=== PATIENT | female | born 1950 | race Caucasian/White ===

== ENCOUNTER 2025-09-05 09:33 | Outpatient (CLI) | payer MEDICARE, SELFPAY ==
--- NOTE | ~2025-09-05 | MR_ITS ---
EXAMINATION: MR cervical spine wo con DATE: 09/05/2025 10:13 INDICATION: Neck pain. TECHNIQUE: Magnetic resonance imaging (MRI) of the cervical spine was performed without intravenous contrast. COMPARISON: Cervical spine radiographs 09/05/2025 FINDINGS: There is 7 degrees dextrocurvature of thoracolumbar spine. There is kyphosis of cervical spine. There is 2 mm retrolisthesis of C4 on C5, C5 on C6, and C6 on C7. Vertebral body heights are normal. There is severely decreased disc height from C3-C4 through C7-T1 with interbody fusion at C3-C4 and C5-C6. The spinal cord signal intensity is normal. The following disc levels are specifically discussed: C2-C3: The disc does not extend beyond the endplate margin. There is no uncovertebral joint osteoarthritis. There is moderate right and severe left facet joint osteoarthritis. There is mild left neural foraminal stenosis. There is no central canal stenosis. C3-C4: There is severe bilateral uncovertebral joint hypertrophy. There is ankylosis of the facet joints with moderate hypertrophy. There is moderate bilateral neural foraminal stenosis. There is mild central canal stenosis. C4-C5: The disc is bulging. There is severe bilateral uncovertebral joint osteoarthritis. There is severe right and moderate left facet joint osteoarthritis. There is moderate bilateral neural foraminal stenosis. There is mild central canal stenosis. C5-C6: The disc is bulging. There is severe bilateral uncovertebral joint osteoarthritis. There is mild bilateral facet joint osteoarthritis. There is moderate bilateral neural foraminal stenosis. There is mild central canal stenosis. C6-C7: The disc is bulging. There is severe bilateral uncovertebral joint osteoarthritis. There is moderate bilateral facet joint osteoarthritis. There is moderate right and severe left neural foraminal stenosis. There is mild central canal stenosis. C7-T1: The disc is bulging. There is severe right and moderate left uncovertebral joint osteoarthritis. There is severe bilateral facet joint osteoarthritis. There is mild lateral neural foraminal stenosis. There is mild central canal stenosis. IMPRESSION: 1. Severe cervical spondylosis. Reviewed, dictated and finalized at location E.
--- NOTE | ~2025-09-05 | XR_ITS ---
XR cervical spine min 6V Indication: M54.2 - Cervicalgia Comparison: None Findings: No fracture, no subluxation flexion and extension. Severe loss of disc height at C3-4 C4-5 C5-6 and C6-7. There is severe narrowing of the foramina bilaterally throughout the cervical spine. Soft tissues unremarkable Impression: No acute abnormality. Reviewed, dictated and finalized at location P. Impression: No acute abnormality.
== END 2025-09-05 09:34 | disposition home or self-care (01) ==
LOC: MICIMG 09:35
PROVIDERS: PCP Nurse Practitioner Adult Health; Visit Provider Nurse Practitioner Adult Health
DX: M54.2 Cervicalgia (principal); M48.02 Spinal stenosis, cervical region; M47.812 Spondylosis without myelopathy or radiculopathy, cervical region; R29.890 Loss of height
CPT/HCPCS: 72052; 72141

== ENCOUNTER 2025-09-16 07:07 | Day surgery (SDC) | payer MEDICARE, SELFPAY ==
--- OUTSIDE RECORDS SUMMARY | 2025-06-26 03:00 | XMS_ITS ---
Author Organization [facility] Address [address] [place] [address] Care Team Providers Care Smoke Inspector Name Role Phone NO, PCP Primary Care Provider UnavailConnie Llamas Unavailable [phone] Ritchie Mitul Unavailable [phone] REASON FOR VISIT Right Upper Quadrant Trigger Point Injection Medications Medication SIG (Take, Route, Frequency, Duration) Notes Start Date End Date Status Escitalopram Oxalate 10 MG 1 tablet Oral ly Once a day for 90 days Active Venlafaxine HCl ER 75 MG 1 capsule with food Orally Once a day for 90 days Active Dutasteride 0.5 MG 1 capsule Orally Onc e a day for 100 days Active Diclofenac Sodium 75 MG 1 tablet as need ed Orally daily for 100 days Active tiZANidine HCl 4 MG 1-2 tablets at bedti me as needed Orally at bedtime as needed for 30 days 06/24/2025 Active ALPRAZolam 0.25 MG 1 tablet Orally Twic e a day Active Levothyroxine Sodium 112 MCG 1 tablet in the morning on an empty stomach Orally Once a day for 100 days Active Hydroxychloroquine Sulfate 2 00 MG as directed Orally daily for 100 days Active Tylenol 8 Hour Arthritis Donavan n 650 MG 2 tablets as needed Orally every 8 hrs Active Encounters Encounter Location Date Provider Diagnosis [facility] [address] [place] [address] 06/26/2025 Mitul Dugan Myalgia, other site M79.18 Assessments Encounter Date Diagnosis (ICD Code) Assessment Notes Treatment Notes Treatment Clinical Notes Section Notes 06/26/2025 Myalgia, other site (ICD-10 - M79.18) Plan Of Treatment No Information Progress Notes * Jazzmine LANDIN:[birth year] (75 yo F)Acc No.[id number]:06/26/2025 Injection Patient: Gail WALTER Provider: JOSEFINA Hernandez :1950 A ge:74 Y S ex:Female Date:06/26/2025 Address:[address] [place] [address] Pcp:PCP NO Subjective: * Chief Complaints: * 1 . Right Upper Quadrant Trigger Point Injection. * HPI: C omplaints: PROCEDURE NOTE Patient presents to the practice today with pain reported at a level 7 located in the right upper quadrant. We will reevaluate the pain level at the post procedural follow up. PROCEDURE: 1. Trigger point injection of the Trapezius, Levator Scapulae, Splenius Capitis muscles and the greater occipital nerve DIAGNOSIS: 1. Myalgia (M79.18) MEDICATION USED: 1. Marcaine 0.5% 4 cc 2. DepoMedrol 80mg/cc 1 cc SUBJECTIVE: This is a 74 year old patient that presents today for a right upper quadrant muscle injection targeting the above muscles. PROCEDURE DESCRIPTION: After explaining the risks and benefits and answering the patient's questions informed consent was obtained. The patient was placed in the appropriate position for the procedure. Palpation was used to identify painful myofascial trigger points then the skin over the area to be injected was cleaned with alcohol prior to each injection. Using a 25 gauge needle, the muscles listed above were injected. The medication listed above was injected evenly between all muscles injected after first aspirating for blood. The patient tolerated the procedure well and was given post procedure instructions after being observed and found to have no adverse events. Patient was instructed to follow up for a post procedure visit in 1-2 weeks or sooner if they have any questions or problems. COMPLICATIONS: NONE PLAN: 1. Follow post procedure instructions and call the office with any questions or concerns. 2. Continue on present medications. 3. Follow up in office appointment within several weeks to check on response to the injection and to make any necessary medication adjustments and determine subsequent treatment steps. physician office assistant present during procedure: Truong Davis. * Medical History: * Medications: T aking Tylenol 8 Hour Arthritis Pain 650 MG Tablet Extended Release 2 tablets as needed Orally every 8 hrs , Taking ALPRAZolam 0.25 MG Tablet 1 tablet Orally Twice a day , Taking Levothyroxine Sodium 112 MCG Tablet 1 tablet in the morning on an empty stomach Orally Once a day , Taking Hydroxychloroquine Sulfate 200 MG Tablet as directed Orally daily , Taking Dutasteride 0.5 MG Capsule 1 capsule Orally Once a day , Taking Diclofenac Sodium 75 MG Tablet Delayed Release 1 tablet as needed Orally daily , Taking Escitalopram Oxalate 10 MG Tablet 1 tablet Orally Once a day , Taking Venlafaxine HCl ER 75 MG Capsule Extended Release 24 Hour 1 capsule with food Orally Once a day , Taking tiZANidine HCl 4 MG Tablet 1-2 tablets at bedtime as needed Orally at bedtime as needed Objective: * Vitals: Assessment: * Assessment: 1. lesa Caal site - M79.18 (Primary) Plan: * Treatment: * Procedure Codes: 2 0553 TRIGGER POINT INJECTION 3 OR MORE MUSCLES, J1010 Injection, methylprednisolone acetate, 1 mg, Units: 80.00 , Modifiers: JZ * * Electronic signature of JOSEFINA Barron on 09/16/2025 at 07:10 AM COLLEGE RECRUITER Sign off status: Pending * Provider: JOSEFINA Hernandez Date: 0 06/26/2025 Generated for Luis rizo/Yanick/El on: 1 11/16/2024 07:10 AM COLLEGE RECRUITER History and Physical Notes * HPI (History of Present Illness) Category Sub-Category Detail Notes Category Not es Complaints PROCEDURE NOTE Patient presents to the practice today with pain reported at a level 7 located in the right upper quadrant. We will reevaluate the pain level at the post procedural follow up. PROCEDURE: 1. Trigger point injection of the Trapezius, Levator Scapulae, Splenius Capitis muscles and the greater occipital nerve DIAGNOSIS: 1. Myalgia (M79.18) MEDICATION USED: 1. Marcaine 0.5% 4 cc 2. DepoMedrol 80mg/cc 1 cc SUBJECTIVE: This is a 74 year old patient that presents today for a right upper quadrant muscle injection targeting the above muscles. PROCEDURE DESCRIPTION: After explaining the risks and benefits and answering the patient's questions informed consent was obtained. The patient was placed in the appropriate position for the procedure. Palpation was used to identify painful myofascial trigger points then the skin over the area to be injected was cleaned with alcohol prior to each injection. Using a 25 gauge needle, the muscles listed above were injected. The medication listed above was injected evenly between all muscles injected after first aspirating for blood. The patient tolerated the procedure well and was given post procedure instructions after being observed and found to have no adverse events. Patient was instructed to follow up for a post procedure visit in 1-2 weeks or sooner if they have any questions or problems. COMPLICATIONS: NONE PLAN: 1. Follow post procedure instructions and call the office with any questions or concerns. 2. Continue on present medications. 3. Follow up in office appointment within several weeks to check on response to the injection and to make any necessary medication adjustments and determine subsequent treatment steps. physician office assistant present during procedure: Truong Davis
--- OUTSIDE RECORDS SUMMARY | 2025-07-15 07:45 | XMS_ITS ---
Author Organization [facility] Address [address] [place] [address] Care Team Providers Care Consulting Services Project Manager Name Role Phone NO, PCP Primary Care Provider Connie Brady Unavailable [phone] Mitul Dugan Unavailable [phone] REASON FOR VISIT 2 Wks Encounters Encounter Location Date Provider Diagnosis [facility] [address] 07/15/2025 Mitul Dugan Plan Of Treatment No Information Progress Notes * aGil GONZALEZDOB:[birth year] (75 yo F)Acc No.[id number]:07/15/2025 Post Procedure Follow Up Patient: Gail WALTER Provider: JOSEFINA Hernandez :1950 A ge:75 Y S ex:Female Date:07/15/2025 Address:[address] [place], [place] [id number] Pcp:PCP NO Subjective: * Chief Complaints: * 1 . 2 Wks. * Medical History: Objective: * Vitals: Assessment: Plan: * Treatment: * * Electronic signature of JOSEFINA Barron on 09/16/2025 at 07:10 AM DENTAL CHAIRSIDE ASSISTANT Sign off status: Pending * Provider: JOSEFINA Hernandez Date: 0 07/15/2025 Generated for Luis rizo/Yanick/eTransmitting on: 1 11/16/2024 07:10 AM DENTAL CHAIRSIDE ASSISTANT
--- OUTSIDE RECORDS SUMMARY | 2025-07-22 05:45 | XMS_ITS ---
Author Organization [facility] Address [address] [place] [address] Care Team Providers Care Back Office Medical Assistant Name Role Phone NO, PCP Primary Care Provider Connie Brady Unavailable [phone] Allergies No Known Allergies REASON FOR VISIT Cervical Five Cervical Six Epidural Steroid Injection Medications Medication SIG (Take, Route, Frequency, Duration) Notes Start Date End Date Status Escitalopram Oxalate 10 MG 1 tablet Oral ly Once a day for 90 days Active Diclofenac Sodium 75 MG 1 tablet as need ed Orally daily for 100 days Active tiZANidine HCl 4 MG 1-2 tablets at bedti me as needed Orally at bedtime as needed for 30 days 06/24/2025 Active Venlafaxine HCl ER 75 MG 1 capsule with food Orally Once a day for 90 days Active CeleBREX 200 MG 1 capsule Orally Onc e a day PRN for 30 days 07/15/2025 Active Tylenol 8 Hour Arthritis Donavan n 650 MG 2 tablets as needed Orally every 8 hrs Active Levothyroxine Sodium 112 MCG 1 tablet in the morning on an empty stomach Orally Once a day for 100 days Active ALPRAZolam 0.25 MG 1 tablet Orally Twic e a day Active Dutasteride 0.5 MG 1 capsule Orally Onc e a day for 100 days Active Hydroxychloroquine Sulfate 2 00 MG as directed Orally daily for 100 days Active Encounters Encounter Location Date Provider Diagnosis [facility] [address] [place] [address] 07/22/2025 Connie Hicks Cervical radiculopat hy M54.12 Assessments Encounter Date Diagnosis (ICD Code) Assessment Notes Treatment Notes Treatment Clinical Notes Section Notes 07/22/2025 Cervical radiculopathy (ICD-10 - M54.12) Plan Of Treatment No Information Progress Notes * Gail LANDINDOB:[birth year] (75 yo F)Acc No.[id number]:07/22/2025 Injection Patient: Gail WALTER Provider: Katya Hicks MD :1950 A ge:75 Y S ex:Female Date:07/22/2025 Address:[address] [place] [address] Pcp:PCP NO Subjective: * Chief Complaints: * 1 . Cervical Five Cervical Six Epidural Steroid Injection. * HPI: C omplaints: PROCEDURE: 1. Epidural steroid injection at level; posterior paramedian approach 2. Epidurography 3. Fluoroscopic imaging for needle placement 4. Radiographic interpretation: Cervical Spine DIAGNOSIS: 1. Cervical Radiculopathy MEDICATION USED: 1. Skin infiltration: 5cc Lidocaine 1% 2. Contrast agent: 3 cc Omnipaque-300 3. 3 cc 0.9% Normal Saline 4. Steroid: 10 mg Dexamethasone SUBJECTIVE: This patient presents today for a epidural steroid injection. PROCEDURE DESCRIPTION: Informed consent for the procedure was obtained and the patient signed the procedure consent form. The patient was given sufficient time to ask questions related to the procedure and to discuss expectations and the overall plan of treatment. The patient was brought into the procedure room and placed in the appropriate position for the procedure as noted above. Betadine (or alcohol if the patient carried an iodine allergy history) was used to prepare the skin over the appropriate location for the injection and sterile drapes were applied. Strict aseptic technique was followed during the procedure. The skin was then infiltrated overlying the area to be injected with local anesthetic as noted above. A 22-ga needle was used for the procedure. This was advanced to the epidural space using a loss of resistance technique walking the needle point off the lamina to enter the epidural space to the appropriate side of the epidural space to ensure coverage of the nerve roots on that side. The epidural space was entered without difficulty; and an epidurogram, if done, was performed using contrast agent as noted above and is reported below. Following the epidurogram, the patient received the steroid and local anesthetic diluted with preservative-free saline as noted above after careful aspiration for CSF and blood. The patient had no ill effects from the procedure.The patient was taken to and watched in the recovery area for an appropriate period of time and then released to home in the care of a responsible adult once discharge criteria were met and discharge planning/subsequent appointments were made. FLUOROSCOPIC IMAGING FINDINGS: An initial survey of the spine in the area noted was performed with the C-arm fluoroscope. The following were noted: 1. Minimal degenerative changes were notated in the cervical spine EPIDUROGRAM FINDINGS: Once the spinal needle was properly placed within the epidural space and after careful aspiration to check for CSF and blood, the contrast agent noted above was injected to observe the dye flow pattern in the area injected. Contrast was seen to flow freely out the nerve root sleeves. There was no evidence of cut off of a nerve root sleeve or impairment of dye flow into any area. COMPLICATIONS: NONE PLAN: 1. Follow post procedure instructions and complete post procedure diary. 2. Continue on present medications. 3. Follow-up appointment within several weeks to check on response to the injection or to repeat the injection and to make any necessary medication adjustment and determine subsequent treatment steps. * Medical History: H ypothyroidism. * Medications: T aking Tylenol 8 Hour [...] as needed Orally at bedtime as needed , Taking CeleBREX 200 MG Capsule 1 capsule Orally Once a day PRN * Allergies: N .K.D.A. Objective: * Vitals: Assessment: * Assessment: 1. C ervical radiculopathy - M54.12 (Primary) Plan: * Treatment: * Procedures: a dvanced disc space narr c56 c67 with marked spondolysis c56 c67 end plate changes c5 and c6. * Procedure Codes: 6 2321 NJX INTERLAMINAR CRV/THRC, 25006 X-RAY EXAM OF NECK SPINE, J1010 Injection, methylprednisolone acetate, 1 mg, Units: 80.00 , Modifiers: JZ * * Electronic signature of Connie Hicks MD on 09/16/2025 at 07:10 AM INDUSTRIAL GAS FITTER HELPER Sign off status: Pending * Provider: Katya Hicks MD Date: 0 07/22/2025 Generated for Cindyi darrius/Yanick/eTransmitting on: 1 11/16/2024 07:10 AM INDUSTRIAL GAS FITTER HELPER History and Physical Notes * HPI (History of Present Illness) Category Sub-Category Detail Notes Category Not es Complaints PROCEDURE: 1. Epidural steroid injection at level; posterior paramedian approach 2. Epidurography 3. Fluoroscopic imaging for needle placement 4. Radiographic interpretation: Cervical Spine DIAGNOSIS: 1. Cervical Radiculopathy MEDICATION USED: 1. Skin infiltration: 5cc Lidocaine 1% 2. Contrast agent: 3 cc Omnipaque-300 3. 3 cc 0.9% Normal Saline 4. Steroid: 10 mg Dexamethasone SUBJECTIVE: This patient presents today for a epidural steroid injection. PROCEDURE DESCRIPTION: Informed consent for the procedure was obtained and the patient signed the procedure consent form. The patient was given sufficient time to ask questions related to the procedure and to discuss expectations and the overall plan of treatment. The patient was brought into the procedure room and placed in the appropriate position for the procedure as noted above. Betadine (or alcohol if the patient carried an iodine allergy history) was used to prepare the skin over the appropriate location for the injection and sterile drapes were applied. Strict aseptic technique was followed during the procedure. The skin was then infiltrated overlying the area to be injected with local anesthetic as noted above. A 22-ga needle was used for the procedure. This was advanced to the epidural space using a loss of resistance technique walking the needle point off the lamina to enter the epidural space to the appropriate side of the epidural space to ensure coverage of the nerve roots on that side. The epidural space was entered without difficulty; and an epidurogram, if done, was performed using contrast agent as noted above and is reported below. Following the epidurogram, the patient received the steroid and local anesthetic diluted with preservative-free saline as noted above after careful aspiration for CSF and blood. The patient had no ill effects from the procedure.The patient was taken to and watched in the recovery area for an appropriate period of time and then released to home in the care of a responsible adult once discharge criteria were met and discharge planning/subsequent appointments were made. FLUOROSCOPIC IMAGING FINDINGS: An initial survey of the spine in the area noted was performed with the C-arm fluoroscope. The following were noted: 1. Minimal degenerative changes were notated in the cervical spine EPIDUROGRAM FINDINGS: Once the spinal needle was properly placed within the epidural space and after careful aspiration to check for CSF and blood, the contrast agent noted above was injected to observe the dye flow pattern in the area injected. Contrast was seen to flow freely out the nerve root sleeves. There was no evidence of cut off of a nerve root sleeve or impairment of dye flow into any area. COMPLICATIONS: NONE PLAN: 1. Follow post procedure instructions and complete post procedure diary. 2. Continue on present medications. 3. Follow-up appointment within several weeks to check on response to the injection or to repeat the injection and to make any necessary medication adjustment and determine subsequent treatment steps.
[2025-09-12 09:30] VITALS: BMI 34.2
--- NOTE | ~2025-09-16 | XR_ITS ---
EXAMINATION: XR fluoroscopy no charge DATE: 09/16/2025 08:30 INDICATION: Bilateral C2-C3, C3 and C4 medial branch blocks TECHNIQUE: 133 fluoroscopic images of the cervical spine were obtained during pain management procedure performed by Dr. Lira. Radiologist was not present for the imaging or procedure. The amount of fluoroscopy time used during this procedure was 0.8 minutes. The cumulative radiation dose was 3.56 mGy. COMPARISON: None. FINDINGS/IMPRESSION: Fluoroscopic images demonstrate needles advanced with tips projecting near the junction of the lateral margin of the lateral mass of C2, C3 and C4 on both the left and right. See procedure note for further detail. Reviewed, dictated and finalized at location A. IDE SALES ACCOUNT EXECUTIVE
--- NOTE | 2025-09-16 05:51 | WPDHPUPDATE1 ---
History and Physical Update Update Date/Time: 09/16/25 05:51 History and Physical has been reviewed, including an updated exam of the patient. There are NO changes in the patient's condition. Risks, benefits, and alternatives have been discussed and questions answered. Patient agrees to proceed with procedure.
--- NOTE | 2025-09-16 05:52 | P.OP_ITS ---
Procedure Note - Detailed Date of Procedure 09/16/25 Pre-op Diagnosis Cervical Spondylosis w/o Myelopathy or Radiculop. Post-op Diagnosis Same Procedure Performed Diagnostic Bilateral Cervical Medial Branch Blocks at C2-3, C3, C4 Blocking the Bilateral C2-3, C3-4 Facet Joints Under Fluoroscopic Guidance and with Contrast Control (4 levels blocked). Surgeon Remberto Lira MD Ordering Machine Operator None. Anesthesia Local Description of Procedure INFORMED CONSENT: Risks, benefits and alternatives to the procedure were discussed in detail with the patient who expressed explicit understanding and consent to proceed. Patient was informed verbally and in written form regarding the risks associated with the procedure including the low risk of serious infection, bleeding/bruising, allergic reaction, nerve or organ injury, paralysis, procedural site pain or discomfort, worsening pain and/or mobility, failure to treat and/or disfigurement. The patient expressed explicit understanding and consent to proceed. All materials required for the procedure were available prior to procedure start. Site and side was marked prior to procedure and confirmed in the presence of the patient. PROCEDURE IN DETAIL: The patient was brought to the procedural suite and placed in the left lateral decubitus position with head stabilized. Patient was made comfortable with use of pillows under the head and between the knees and ankles. Skin overlying the injection site on the affected side was prepared broadly with tinted 3ml ChloraPrep applicator and draped in a sterile manner. Aseptic technique was used throughout. The endplates of the vertebral bodies at the site(s) of interest were aligned in the lateral fluoroscopic view relative to the patient. Image was optimized for visualization of the pars interarticularis at each target site. Local anesthesia was established by infiltration with approximately 5 mL of 1% lidocaine via a 1-1/2 inch 27- gauge needle. A 25-gauge 3.5 inch Quincke spinal needle was advanced until the needle tip contacted the periosteum of the pars interarticularis at the target site, the right C2-3 medial branch. AP view was utilized to confirm the appropriate placement of the needle tip just lateral to the periosteum at the center point of the pars interarticularis. In the lateral view, 0.25 mL of Omnipaque 300 contrast medium was injected after negative aspiration for CSF, blood or other bodily fluid, showing appropriate extra-articular spread of contrast without evidence of intravascular, foraminal or intrathecal placement. A 0.25 mL solution of 0.5% PF bupivacaine was injected after negative repeat aspiration. Appropriate spread of the injectate was confirmed with washout of previously injected contrast. No parasthesias were elicited. Needle was removed completely intact without difficulty. The same procedure was repeated for all additional intended levels/structures treated on the ipsilateral side, the right C3, C4 medial branches with identical methodology modified to compensate for different location, with similar results and no evidence of complication. The same procedure was then repeated for all additional intended levels/structures treated on the contralateral side, the left C2-3, C3, C4 medial branches, with identical methodology and positioning modified to compensate for the contralateral location, with similar results and no evidence of complication. Images were saved and documented in the patient chart. Patient's skin was cleaned and sterile bandage applied. The patient tolerated the procedure well. The patient was transported to the recovery area in stable condition where they were observed for an appropriate amount of time prior to discharge, without evidence of complication. Patient was instructed on the appropriate completion of a pain diary over the next 12-24 hours. The patient was instructed to avoid excessive activity for the next 48 hours, including climbing and frequent use of stairs. Showers only for 48 hours. They were instructed not to drive or operate heavy machinery for 24 hours. They are to monitor for severe headaches, fevers, chills, night sweats, erythema/swelling at the site or any other signs of infection, bleeding/bruising, bowel or bladder changes as well as new pain, weakness or numbness in the upper or lower extremity. Should they notice these changes, they are instructed to call our office immediately or report directly to the nearest Emergency Department if no answer or if after posted office hours. COMPLICATIONS: None. COMMENTS: None. CONTRAST WASTED: 28.5mL Omnipaque 300. Complications No immediate complications Condition Stable Disposition Same day [facility] Billing Surgery - Charge Forward: Surgery Billing
--- OUTSIDE RECORDS SUMMARY | 2025-09-16 07:10 | XMS_ITS | Patient Health Record ---
Author Organization [facility] Address [address] [place] [address] Care Team Providers Care Forging Press Operator Name Role Phone NO, PCP Primary Care Provider Connie Brady Unavailable [phone] Mitul Dugan Unavailable [phone] Allergies No Known Allergies Reason For Referral Reason To: Dr. Kristie Hanley i Pt with symptoms of headaches Referral Organization [facility] Referring Provider First Name Connie Referring Provider Last Name Kurt Referring Provider Speciality Pain Medic ine Referred Provider Specialty Neurology Referral Priority Routine Medications Medication SIG (Take, Route, Frequency, Duration) Notes Start Date End Date Status Venlafaxine HCl ER 75 MG 1 capsule with food Orally Once a day for 90 days Active Escitalopram Oxalate 10 MG 1 tablet Oral ly Once a day for 90 days Active CeleBREX 200 MG 1 capsule Orally Onc e a day PRN for 30 days 07/15/2025 Active tiZANidine HCl 4 MG 1-2 tablets at bedti me as needed Orally at bedtime as needed for 30 days 06/24/2025 Active Hydroxychloroquine Sulfate 2 00 MG as directed Orally daily for 100 days Active Levothyroxine Sodium 112 MCG 1 tablet in the morning on an empty stomach Orally Once a day for 100 days Active Diclofenac Sodium 75 MG 1 tablet as need ed Orally daily for 100 days Active Dutasteride 0.5 MG 1 capsule Orally Onc e a day for 100 days Active ALPRAZolam 0.25 MG 1 tablet Orally Twic e a day Active Tylenol 8 Hour Arthritis Donavan n 650 MG 2 tablets as needed Orally every 8 hrs Active Social History Tobacco Use: Social History Observation Description Date Details (start date - stop date) Former Smoker NA - NA Tobacco Control (Standard) Question Answer Notes Tobacco use: Former smoker How long has it been since you last smoked? Julianaa ter than 10 years AUDIT-C (Standard) Question Answer Notes Did you have a drink contain ing alcohol in the past year? Yes How often did you have a dri nk containing alcohol in the past year? Daily or almost daily (4 points) How many drinks did you have on a typical day when you were drinking in the past year? 3 or 4 drinks (1 point) How often did you have six o r more drinks on one occasion in the past year? Declined to specify (0 point) Points 5 Interpretation Positive Vital Signs Heart Rate 75 /min 06/24/2025 Blood pressure diastolic 74 mm Hg 06/24/2025 Height 64 in 06/24/2025 Blood pressure systolic 122 mm Hg 06/24/2025 Weight 192 lbs 06/24/2025 BMI 32.95 kg/m2 06/24/2025 Encounters Encounter Location Date Provider Diagnosis [facility] [place] [address] 06/24/2025 Mitul Dugan Myalgia of auxiliary muscles, head and neck M79.12 and Cervical spinal stenosis M48.02 [facility] [place] [address] 06/26/2025 Mitul Dugan Myalgia, other site M79.18 [facility]-[address] [place] [address] 07/15/2025 Mitul Dugan Cervical spinal stenosis M48.02 ; Cervical radiculopathy M54.12 and Headache, unspecified R51.9 [facility] [place] [address] 07/22/2025 Connie Hicks Cervical radiculopat hy M54.12 [facility] [place] [address] 08/05/2025 Mitul Dugan Cervical radiculopat hy M54.12 ; Cervical spinal stenosis M48.02 and Cervical spondylosis without myelopathy M47.812 Assessments Encounter Date Diagnosis (ICD Code) Assessment Notes Treatment Notes Treatment Clinical Notes Section Notes 06/24/2025 Myalgia of auxiliary muscles, head and neck (ICD-10 - M79.12) IMPRESSION: 1. Axial neck pain. 2. Cervical myofascial pain syndrome. 3. Cervical spondylosis. 4. Cervical stenosis. 06/24/2025 Cervical spinal stenosis (ICD-10 - M48.02) IMPRESSION: 1. Axial neck pain. 2. Cervical myofascial pain syndrome. 3. Cervical spondylosis. 4. Cervical stenosis. 06/26/2025 Myalgia, other site (ICD-10 - M79.18) 07/15/2025 Cervical spinal stenosis (ICD-10 - M48.02) Assessment is unchanged from 06/24/25 except as denoted below. 07/15/2025 Cervical radiculopathy (ICD-10 - M54.12) Assessment is unchanged from 06/24/25 except as denoted below. 07/22/2025 Cervical radiculopathy (ICD-10 - M54.12) 08/05/2025 Cervical radiculopathy (ICD-10 - M54.12) Assessment is unchanged from 07/15/25 except as denoted below. 08/05/2025 Cervical spinal stenosis (ICD-10 - M48.02) Assessment is unchanged from 07/15/25 except as denoted below. 07/15/2025 Headache, unspecified (ICD-10 - R51.9) Assessment is unchanged from 06/24/25 except as denoted below. 08/05/2025 Cervical spondylosis without myelopathy (ICD-10 - M47.812) Assessment is unchanged from 07/15/25 except as denoted below. 06/24/2025 Other PLAN: We discussed with the patient about right upper quadrant trigger point injections to target her muscle pain and tightness as well as her occipital neuralgia. We discussed procedure details, risks, benefits, alternatives and expected outcomes of the above procedures with the patient. The patient expressed understanding. All patient questions were answered to the patient's satisfaction. We will schedule the patient for right upper quadrant trigger point injections. We will prescribe Tizanidine (Zanaflex) 4 mg 1-2 tablets at night as needed to improve muscle pain and sleep quality overnight. Discussed potential medication risks and side effects of the above medication with the patient. The patient expressed understanding. The patient denies a history of kidney or liver disease. We discussed with the patient about a cervical epidural steroid injection to target her pain stemming from stenosis; however, the patient defers at this time as her latest cervical epidural steroid injection did not give her significant relief. We will consider this in the future if the trigger point injections do not give the patient significant relief. We discussed with the patient about a spinal cord stimulator implant to give her long-term pain relief of her neck pain; however, the patient defers this option at this time and states that she does not want to have any surgical procedures at this time. We will not add or change any other medications at this time as the patient is currently tolerating all medications with no significant side effects. We advised the patient to contact the clinic if they develop any new pain or worsening symptoms. IMPRESSION: 1. Axial neck pain. 2. Cervical myofascial pain syndrome. 3. Cervical spondylosis. 4. Cervical stenosis. 07/15/2025 Other Notes: Significant time was spent due to complex decision-making as a result of the patient's complicated pain issues. The plan is as follows: Patient will continue exercise therapy regimen. Due to pt's persistent headaches, will refer pt to Dr. Geronimo King, neurology, at [place] for further evaluation. Will schedule the patient for a C5/6 BLAYNE to target pain and radicular symptoms stemming from stenosis. Discussed procedure details, risks, benefits, alternatives and expected outcomes with the patient. The patient expresses understanding. All patient questions were answered to the patient's satisfaction. Will prescribe Celebrex for patient's acute pain and to reduce inflammation. Discussed medication risks/potential side effects with the patient. Advised the patient to not take any other NSAIDs while taking this medication. The patient expresses understanding. The patient denies history of kidney or liver disease. We advised the patient that all blood thinners must be discontinued 1 week prior to the cervical BLAYNE including NSAIDs and fish oil. The patient expressed understanding. We will not add or change any medications at this time as the patient is currently tolerating all medications with no significant side effects. Advised pt to contact clinic if they develop any new/worsening symptoms or pain The total encounter time for today's visit was 30 minutes which was spent on preparation for the visit, e.g. chart review, and in the activities documented in this note. Please refer back to the HPI and physical exam sections of this note for further details regarding this encounter. Assessment is unchanged from 06/24/25 except as denoted below. 08/05/2025 Other Notes: Significant time was spent due to complex decision-making as a result of the patient's complicated pain issues. The plan is as follows: Patient will continue exercise therapy regimen. Pt states she received no benefit from her recent cervical BLAYNE. Discussed with pt again about a cervical MBB and RFA, but the pt again declines. Pt states she was unable to follow up with the neurologist as referred at her previous visit due to them not willing to see her. Offered a referral to a different neurologist but the pt declines at this time. Discussed with pt about the SCS implant for longer term pain relief, but the pt defers for now. Educational literature given to review. Pt defers all procedures at this time as she is going to [place] next week for a few weeks. Pt notes she will be seeing a new PCP while she is in [place]. Pt elects to FU PRN at this time. We will not add or change any medications at this time as the patient is currently tolerating all medications with no significant side effects. Advised pt to contact clinic if they develop any new/worsening symptoms or pain The total encounter time for today's visit was 25 minutes which was spent on preparation for the visit, e.g. chart review, and in the activities documented in this note. Please refer back to the HPI and physical exam sections of this note for further details regarding this encounter. Assessment is unchanged from 07/15/25 except as denoted below. Plan Of Treatment No Information Insurance Providers Payer Name Payer Address Payer Phone Subscriber Number Group Number Insured Name Patient Relationship to Insured Coverage Start Date Coverage End Date [employer] Medicare Advantage Choice PPO [address] [address] [place] [address] [id number] Gail Landin Self - patient is the insured Medical (General) History Medical History History ICD Code Hypothyroidism Surgical History Surgery Date(Month/Year) R Fracture Wrist 2023 R Hip Replacement Repair 2023 R Hip Replacement 2017 Shoulder Replacement L 2015 Bone Removal R hand 2006 Hysterectomy 1982
--- OUTSIDE RECORDS SUMMARY | 2025-09-16 07:11 | XMS_ITS | Clinical Summary ---
Author Organization [facility] Address [address] [id number] Care Team Providers Care Chiropractor Assistant Name Role Phone [facility] Pro vider Allergies No known active allergies Medications levothyroxine (SYNTHROID) 112 MCG tabletIndicatio ns:Left shoulder pain,Arthritis of shoulder region, degenerative, left,Acromiocla vicular arthrosis, left Take by mouth every morning (on an empty stomach). Active diclofenac (VOLTAREN) 75 MG EC tabletIndicatio ns:Left shoulder pain,Arthritis of shoulder region, degenerative, left,Acromiocla vicular arthrosis, left Take by mouth 2 times daily. Active cetirizine (ZYRTEC) 5 MG tabletIndicatio ns:Left shoulder pain,Arthritis of shoulder region, degenerative, left,Acromiocla vicular arthrosis, left Take by mouth daily. Active Dwarf-3 Fatty Acids (FISH OIL PO)Indications: Left shoulder pain,Arthritis of shoulder region, degenerative, left,Acromiocla vicular arthrosis, left Take by mouth. Active Multiple Vitamin (MULTIVITAMIN) TABSIndications :Left shoulder pain,Arthritis of shoulder region, degenerative, left,Acromiocla vicular arthrosis, left Take by mouth. Active Calcium Carbonate-Vitam in D (CALCIUM-D PO)Indications: Left shoulder pain,Arthritis of shoulder region, degenerative, left,Acromiocla vicular arthrosis, left Take by mouth. Active Glucosamine-Cho ndroitin (GLUCOSAMINE CHONDR COMPLEX PO)Indications: Left shoulder pain,Arthritis of shoulder region, degenerative, left,Acromiocla vicular arthrosis, left Take by mouth. Active diphenhydrAMINE -acetaminophen (TYLENOL PM) 25-500 MG Tab by mouth. Active oxyCODONE (ROXICODONE) 5 MG immediate release tablet Take 1-2 Tablets by mouth every 4 hours as needed. 60 Tablet 0 05/15/2014 Active ondansetron (ZOFRAN) 4 MG tablet Take 1 Tablet by mouth every 6 hours as needed for nausea. 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 Family History Medical History Relation Comments Arthritis Father Cancer Father Vision Loss Maternal Aunt Heart Disease Maternal Grandfather High Blood Pressure Maternal Grandfather Arthritis Mother High Blood Pressure Mother Vision Loss Mother Cancer Paternal Aunt Relation Status Comments Father Maternal Aunt Maternal Grandfather Mother Paternal Aunt Social History Tobacco Use Types Packs/Day Years Used Date Smoking Tobacco: Former Cigarettes 15 0 11/06/1963 - 11/06/1978 Smokeless Tobacco: Never Alcohol Use Standard Drinks/Week Comments Yes 13 (1 standard drink = 0.6 oz pu re alcohol) Comments No Sex and Gender Information Value Date Recorded Sex Assigned at Not on file Legal Sex Female 2:24 PM EDT Gender Identity Not on file Sexual Orientation Not on file Last Filed Vital Signs Vital Sign Reading Time Taken Comments Blood Pressure 128/99 06/19/2014 10:43 AM EDT Pulse 75 06/19/2014 10:43 AM EDT Temperature 36.1 C (96.9 F) 06/19/2014 10:43 AM EDT Respiratory Rate 12 05/16/2014 7:58 AM EDT Oxygen Saturation 97% 05/16/2014 7:58 AM EDT Inhaled Oxygen Concentration - - Weight 86.6 kg (191 lb) 06/19/2014 10:43 AM EDT Height 165.1 cm (5' 5) 06/19/2014 10:43 AM EDT Body Mass Index 31.78 06/19/2014 10:43 AM EDT Plan of Treatment Health Maintenance Due Date Last Done Comments Hepatitis C Screening 1950 DTaP,Tdap,and Td Vaccines (1 - Tdap) 1968 Lipid Profile 1994 Pneumococcal Vaccine (50+ yr s) (1 of 1 - PCV) 1999 Zoster Vaccine (1 of 2) 1999 Dexa 2014 RSV Vaccine (1 - 1-dose 75+ series) 2024 Influenza Vaccine (#1) 2025 SARS-CoV-2 (COVID-19) (1 - 2 season) 2025 HIB Vaccine Aged Out No longer eligi ble based on patient's age to complete this topic HPV Vaccine Aged Out No longer eligi ble based on patient's age to complete this topic Hepatitis A Vaccine Aged Out No longe r eligible based on patient's age to complete this topic Hepatitis B Vaccine Aged Out No longe r eligible based on patient's age to complete this topic Meningococcal ACWY Aged Out No longer eligible based on patient's age to complete this topic Meningococcal B Aged Out No longer el igible based on patient's age to complete this topic Polio Vaccine Aged Out No longer elig ible based on patient's age to complete this topic Rotavirus Vaccine Aged Out No longer eligible based on patient's age to complete this topic Medical Devices Implanted Type Area Women'S Basketball Coach Device Identifier Shelf Expiration Date Model / Serial / Lot Screw Bone Shoulder Locking Reverse #[id number] - [id number] Implanted:Qty: 1 on 05/14/2014 by Kevon Clifford MD at [facility] SCREW Left: Humerus EXACTECH - P_EXACTECH 05/05/2019 [id number] / [id number] / Screw Bn 38mm 4.5mm Equnx Cmprsn Rev #[id number] - [id number] Implanted:Qty: 1 on 05/14/2014 by Kevon Clifford MD at [facility] SCREW Left: Humerus EXACTECH - P_EXACTECH 04/04/2019 [id number] / [id number] / Screw Bn 30mm 4.5mm Shuldr Cmprsn Rev #[id number] - [id number] Implanted:Qty: 1 on 05/14/2014 by Kevon Clifford MD at [facility] SCREW Left: Humerus EXACTECH - P_EXACTECH 03/05/2019 [id number] / [id number] / Screw Bn 38mm 4.5mm Equnx Cmprsn Rev #[id number] - [id number] Implanted:Qty: 1 on 05/14/2014 by Kevon Clifford MD at [facility] SCREW Left: Humerus EXACTECH - P_EXACTECH 04/04/2019 [id number] / [id number] / Screw Bn 26mm 4.5mm Shuldr Cmprsn Rev #[id number] - [id number] Implanted:Qty: 1 on 05/14/2014 by Kevon Clifford MD at [facility] SCREW Left: Humerus EXACTECH - P_EXACTECH 05/05/2019 [id number] / [id number] / Screw Bn Shoulder Torque Defining Rev #[id number] - [id number] Implanted:Qty: 1 on 05/14/2014 by Kevon Clifford MD at [facility] SCREW Left: Humerus EXACTECH - P_EXACTECH 04/04/2019 [id number] / [id number] / Liner Humeral 42mm Plus0 #[id number] - [id number] Implanted:Qty: 1 on 05/14/2014 by Kevon Clifford MD at [facility] SHOULDER COMPONENT Left: Humerus EXACTECH - P_EXACTECH 04/04/2019 [id number] / [id number] / Glenoidsphere 42mm #[id number] - [id number] Implanted:Qty: 1 on 05/14/2014 by Kevon Clifford MD at [facility] SHOULDER COMPONENT Left: Humerus EXACTECH - P_EXACTECH 05/05/2024 [id number] / [id number] / Stem Humeral 11mm Shoulder #[id number] - [id number] Implanted:Qty: 1 on 05/14/2014 by Kevon Clifford MD at [facility] SHOULDER COMPONENT Left: Humerus EXACTECH - P_EXACTECH 04/04/2024 [id number] / [id number] / Tray Sterilization +0 Reverse Humeral #[id number] - [id number] Implanted:Qty: 1 on 05/14/2014 by Kevon Clifford MD at [facility] SHOULDER COMPONENT Left: Humerus EXACTECH - P_EXACTECH 05/05/2024 [id number] / [id number] / [id number] - [id number] Implanted:Qty: 1 on 05/14/2014 by Kevon Clifford MD at [facility] Left: Humerus 08/05/2021 / [id number] / Description:POSTERIOR AUGMEN T GLENOID PLATE LEFT 8 DEG Care Teams Chiropractor Assistant Relationship Specialty Start Date End Date [facility] PCP - General 12/09/14
--- OUTSIDE RECORDS SUMMARY | 2025-09-16 07:11 | XMS_ITS | Clinical Summary ---
Author Organization [facility] Address [address] [place] [id number] Care Team Providers Care Spice Cleaner Name Role Phone Teena Hollis MD Primary Care Provider [phone] Allergies No known active allergies Medications ALPRAZolam (Xanax) 0.25 MG tablet Take 1 tablet (0.25 mg total) by mouth 3 (three) times a day if needed for anxiety. Active hydroxychloroqu ine (Plaquenil) 200 MG tablet Take 1 tablet (200 mg total) by mouth in the morning and 1 tablet (200 mg total) before bedtime. 4 Active levothyroxine (Synthroid, Levoxyl) 112 MCG tablet Take 1 tablet (112 mcg total) by mouth 1 (one) time each day. Active venlafaxine XR (Effexor-XR) 150 MG 24 hr capsule Take 1 capsule (150 mg total) by mouth 1 (one) time each day. Active loratadine (Claritin) 10 MG tablet Take 1 tablet (10 mg total) by mouth 1 (one) time each day if needed for allergies. 4 Active escitalopram (Lexapro) 5 MG tablet Take 1 tablet (5 mg total) by mouth 1 (one) time each day. 4 Active Restasis 0.05 % ophthalmic emulsion Administer 1 drop into both eyes 1 (one) time each day. 4 Active acetaminophen (Tylenol Extra Strength) 500 MG tablet Take 1 tablet (500 mg total) by mouth every 6 (six) hours if needed for mild pain or moderate pain. 4 Active glucosamine-cho ndroitin 500-400 MG capsule Take 1 capsule by mouth in the morning and 1 capsule before bedtime. Active dutasteride (Avodart) 0.5 MG capsule Take 1 capsule (0.5 mg total) by mouth 1 (one) time each day. Active gabapentin (Neurontin) 100 MG capsule Take 1 capsule (100 mg total) by mouth 3 (three) times a day for 7 days, THEN 1 capsule (100 mg total) every night for 14 days. 35 capsule 4 Active amLODIPine (Norvasc) 5 MG tablet Take 1 tablet (5 mg total) by mouth 1 (one) time each day. 30 tablet 4 Active escitalopram (Lexapro) 10 MG tablet Take 1 tablet (10 mg total) by mouth 1 (one) time each day. 5 Active Active Problems Problem Noted Date Diagnosed Date Wrist fracture, closed, left, sequela 10/24/2024 Social History Tobacco Use Types Packs/Day Years Used Date Smoking Tobacco: Former Cigarettes Smokeless Tobacco: Never Tobacco Cessation:Counseling Given: Not Answered Alcohol Use Standard Drinks/Week Comments Yes 0 (1 standard drink = 0.6 oz pur e alcohol) [facility] Safety Answer Date Recorded How often does anyone, tamiko matthews family and friends, threaten you with harm? 1 10/24/2024 How often does anyone, tamiko matthews family and friends, insult or talk down to you? 1 10/24/2024 How often does anyone, tamiko matthews family and friends, physically hurt you? 1 10/24/2024 How often does anyone, tamiko matthews family and friends, scream or curse at you? 1 10/24/2024 Comments No Sex and Gender Information Value Date Recorded Sex Assigned at Not on file Legal Sex Female 7:43 PM EST Gender Identity Not on file Sexual Orientation Not on file Last Filed Vital Signs Vital Sign Reading Time Taken Comments Blood Pressure 118/78 01/20/2025 1:54 PM EDT Pulse 81 01/20/2025 1:54 PM EDT Temperature 36.9 C (98.4 F) 01/20/2025 1:54 PM EDT Respiratory Rate 16 10/24/2024 2:45 PM EST Oxygen Saturation 97% 01/20/2025 1:54 PM EDT Inhaled Oxygen Concentration - - Weight 91.5 kg (201 lb 12.8 oz) 01/20/2025 1:54 PM EDT Height 162.6 cm (5' 4) 01/20/2025 1:54 PM EDT Body Mass Index 34.64 01/20/2025 1:54 PM EDT Plan of Treatment Health Maintenance Due Date Last Done Comments Lipid Panel 1950 Medicare Annual Wellness (AWV) 1950 Obesity Intervention 1955 Depression Screening 1961 DTaP/Tdap/Td Vaccines (1 - Tdap) 1968 Zoster Vaccines (1 of 2) 1968 Respiratory Syncytial Virus (RSV) 60 years and older and/or patients (1 - 1-dose 75+ series) 2024 COVID-19 Vaccine ( - season) 2025 07/26/2022, 08/17/2021, 12/22/2020, Additional history exists Influenza Vaccine (#1) 2025 , 08/23/2023, 08/11/2022, Additional history exists Pneumococcal Vaccine: 50+ Years Completed 06/10/2016, 11/28/2014 Bone Density Scan Completed 11/13/2023 Cologuard Discontinued 01/21/2025, 01/04, 09/20/2021, Additional history exists Colorectal Cancer Screening Discontinued CT Colonography Discontinued Colonoscopy Discontinued FIT Discontinued FOBT Discontinued HPV Vaccines Aged Out No longer eligi ble based on patient's age to complete this topic Hepatitis A Vaccines Aged Out No long er eligible based on patient's age to complete this topic Hepatitis B Vaccines Aged Out No long er eligible based on patient's age to complete this topic Meningococcal B Vaccine Aged Out No l onger eligible based on patient's age to complete this topic Meningococcal Vaccine Aged Out No sybil lloyd eligible based on patient's age to complete this topic Respiratory Syncytial Virus (RSV) <20 months Aged Out No longer eligible based on patient's age to complete this topic Sigmoidoscopy Discontinued Medical Devices Implanted Type Area Still Cleaner Tube Device Identifier Shelf Expiration Date Model / Serial / Lot Ortho Implants Ortho Implants Left: Shoulder Ortho Implants Ortho Implants Right: Hip Screw Geminus Nino N-Lckng 3.5x14mm - [id number] Implanted:Qty: 1 on 10/24/2024 by Shan Babin MD at [facility] Ortho Implants Left: [employer] PANL-351 40-TS / / Plate Geminus Volar Dist Radi Nrw Ti Lt 3h - [id number] Implanted:Qty: 1 on 10/24/2024 by Shan Babin MD at [facility] Ortho Implants Left: [employer] GMN-LTN- 3HL / / Screw Geminus Nino N-Lckng 3.5x11mm - [id number] Implanted:Qty: 1 on 10/24/2024 by Shan Babin MD at [facility] Ortho Implants Left: [employer] PANL-351 10-TS / / Screw Geminus Nino Lckng 3.5x10mm - [id number] Implanted:Qty: 1 on 10/24/2024 by Shan Babin MD at [facility] Ortho Implants Left: [employer] COLS-351 00-TS / / Peg Fxtn Skeletal Dyn Lckng Thrd 2.3x21mm - [id number] Implanted:Qty: 2 on 10/24/2024 by Shan Babin MD at [facility] Ortho Implants Left: [employer] TPLS-232 10-TS / / Peg Fxtn Skeletal Dyn Lckng Thrd 2.3x22mm - [id number] Implanted:Qty: 2 on 10/24/2024 by Shan Babin MD at [facility] Ortho Implants Left: [employer] TPLS-232 20-TS / / Peg Fxtn Skeletal Dyn Lck Thrd 2.3x19mm - [id number] Implanted:Qty: 1 on 10/24/2024 by Shan Babin MD at [facility] Ortho Implants Left: [employer] TPLS-231 90-TS / / Peg Fxtn Skeletal Dyn Lckng Thrd 2.3x17mm - [id number] Implanted:Qty: 1 on 10/24/2024 by Shan Babin MD at [facility] Ortho Implants Left: [employer] TPLS-231 70-TS / / Insurance [employer] MEDICARE Advance Directives * Full Code (Latest Code Status on File) Date Activated Date Inactivated Comments 10/24/2024 1:35 PM 10/24/2024 9:02 PM * Full Code Date Activated Date Inactivated Comments 10/24/2024 8:07 AM 10/24/2024 1:35 PM Care Teams Spice Cleaner Relationship Specialty Start Date End Date Teena Hollis MD PCP - General Family Medicine 10/24/24
--- OUTSIDE RECORDS SUMMARY | 2025-09-16 07:11 | XMS_ITS | Patient Health Record ---
Author Organization [facility] Address [address] [place] [address] Care Team Providers Care Police And Fire Dispatcher Name Role Phone HERRERA GUILLEN Primary Care Provider Reason For Referral No Information Medications Medication SIG (Take, Route, Frequency, Duration) Notes Start Date End Date Status Synthroid 112 mcg tablet take 1 tablet ( 112 mcg) by oral route once daily Active Diclofenac Sodium 75 mg tablet,delayed release (DR/EC) take 1 tablet (75 mg) by oral route 2 times per day Activ e Problems Problem Type SNOMED Code ICD Code Onset Dates Problem Status W/U Status Risk Notes Problem Pain in limb (88861305) PAIN IN LIMB (729.5) Active confirmed PAIN IN LIMB Problem Arthralgia of the ankle and/or foot (093203338) PAIN IN JOINT INVOLVING ANKLE AND FOOT (719.47) Active confirmed PAIN IN JOINT INVOLVING ANKLE AND FOOT Problem Degenerative joint disease of ankle AND/OR foot (68960010) OSTEOARTHROSIS UNSPECIFIED WHETHER GENERALIZED OR LOCALIZED INVOLVING ANKLE AND FOOT (715.97) Active confirmed OSTEOARTHROSIS UNSPECIFIED WHETHER GENERALIZED OR LOCALIZED INVOLVING ANKLE AND FOOT Problem Onychocryptosis (552433385) ONYCHOCRYPTOSIS (703.0) Active confirmed Onychocryptosis Plan Of Treatment No Information Insurance Providers Payer Name Payer Address Payer Phone Subscriber Number Group Number Insured Name Patient Relationship to Insured Coverage Start Date Coverage End Date [facility] [address] [place] [address] [id number] Gail Landin Self - patient is the insured
--- OUTSIDE RECORDS SUMMARY | 2025-09-16 07:11 | XMS_ITS | Patient Health Record ---
Author Organization [facility] Billing Info Address [address] [place] [address] [place] [address] Care Team Providers Care Flavor Maker Name Role Phone SIMED, Primary Care Primary Care Provider Serena modigayathri SATNAM GRECO [place] [phone] Reason For Referral No Information Medications Medication SIG (Take, Route, Frequency, Duration) Notes Start Date End Date Status Hydroxychloroquine Sulfate 200 MG 1 tablet with food or milk Orally Once a day for 10 day(s) Active Levothyroxine Sodium 112 MCG 1 capsule o n an empty stomach in the morning Orally Once a day for 90 days Active Diclofenac Sodium 75 MG 1 tablet with fo od or milk Orally Twice a day for 90 days Active Finasteride 1 MG 1 tablet Orally Once a day Not-Taking Alprazolam 0.25 MG 1 tablet Orally Twice a day for 90 days Active Spironolactone 100 MG 1 tablet Orally On ce a day for 30 day(s) Active Immunizations Vaccine Route Administration Date Status Comme nts PNEUMOCOCCAL - 23 POLY (PNEU MOVAX 23) Unknown 11/28/2014 Administered PNEUMOCOCCAL 13 CONJ ([id number]) Unknown 06/10/2016 Adm inistered zFLU 3V (FLUZONE HIGH DOSE), 65 YRS+, NO PRES - ALL PAYORS Unknown 06/24/2019 Administered zFLU 4V (FLUZONE QUAD), 3 YR S+, NO PRES - ALL PAYORS Unknown 08/17/2018 Administered zFLU 4V (FLUZONE QUAD), 6MO+ (0.5 ML), NO PRES - ALL PAYORS Unknown 08/12/2020 Administered Social History Tobacco Use: Social History Observation Description Date Details (start date - stop date) Former Smoker NA - NA Tobacco Status: Question Answer Notes Patient is a former smoker Problems Problem Type SNOMED Code ICD Code Onset Dates Problem Status W/U Status Risk Notes Problem Hypothyroidism (09937364) Hypothyroidism (E03.9) Active confirmed Problem Anxiety (55859741) Anxiety (F41.1) Active confi rmed Problem Osteoarthritis (662946014) Osteoarthritis (M19.90) Active confirmed Problem 372080951 Obesity (BMI 30-39.9) (E66.9) Active confirmed Problem Lichen planus (3945000) Lichen planus (L43.9) Active confirmed Problem hypercholesterolemia (disorder) (56966666) Hypercholesteremia (E78.00) Active confirmed Plan Of Treatment No Information Insurance Providers Payer Name Payer Address Payer Phone Subscriber Number Group Number Insured Name Patient Relationship to Insured Coverage Start Date Coverage End Date [employer] MEDICARE HMO/[id number] [address] [address] [place], [place] [id number] Gail Landin Self - patient is the insured 9 9 Medical (General) History Medical History History ICD Code hypercholesterolemia ulcer obesity osteoarthritis hypothyroidism anxiety lichen planus Surgical History Surgery Date(Month/Year) right total hip replacement 08/2017 left reverse total shoulder replacement (Dr. Young) 05/2014 removed the right 1st MCP 08/2016 hysterectomy (one ovary maybe the right remains) 02/1984 tonsillectomy 1952 colonoscopy (5 year followup) 2017
[2025-09-16 07:29] VITALS: BP 150/79; PULSE 65; RESP 16; TEMP 37; O2SAT 100
[2025-09-16] MEDS: LIDOCAINE 2% PF LOCAL INJ 5 ML VIAL (08:08)
[2025-09-16 08:09] VITALS: BP 140/75; PULSE 64; RESP 10; O2SAT 97
[2025-09-16 08:15] VITALS: BP 166/74; PULSE 64; RESP 10; O2SAT 98
[2025-09-16 08:21] VITALS: BP 166/74; PULSE 66; RESP 11; O2SAT 97
[2025-09-16 08:30] VITALS: BP 151/70; PULSE 65; RESP 16; O2SAT 100
== END 2025-09-16 08:42 | disposition home or self-care (01) ==
PROVIDERS: Visit Provider Anesthesiology Pain Medicine
PROC: (CPT 64490; principal; 2025-09-16 08:10)
DX: M47.812 Spondylosis without myelopathy or radiculopathy, cervical region (principal)
CPT/HCPCS: 64490 ×2; 64491 ×2; 64492 ×2; 99199

== ENCOUNTER 2025-09-23 10:04 | Day surgery (SDC) | payer MEDICARE, SELFPAY ==
--- NOTE | ~2025-09-23 | XR_ITS ---
EXAM/PROCEDURE: XR fluoroscopy no charge HISTORY: DIAG/PROG BL C2-3,C3,C4 MEDIAL BRANCH/DORSAL RAMI NERVE BLK COMPARISON: None available. Fluoroscopy time: 81.7 seconds Dose: 2.15 mGy IMPRESSION: Fluoroscopic guidance for pain management. No radiologist present for this procedure. See procedure/operative notes for complete evaluation. Reviewed, dictated and finalized at location A. LOPE STAMPING MACHINE OPERATOR IMPRESSION: Fluoroscopic guidance for pain management. No radiologist present for this proc edure. See procedure/operative notes for complete evaluation.
[2025-09-23 10:29] VITALS: BP 159/77; PULSE 63; RESP 16; TEMP 37; O2SAT 99
--- NOTE | 2025-09-23 12:07 | WPDHPUPDATE1 ---
History and Physical Update Update Date/Time: 09/23/25 12:07 History and Physical has been reviewed, including an updated exam of the patient. There are NO changes in the patient's condition. Risks, benefits, and alternatives have been discussed and questions answered. Patient agrees to proceed with procedure.
--- NOTE | 2025-09-23 12:08 | P.OP_ITS ---
Procedure Note - Detailed Date of Procedure 09/23/25 Pre-op Diagnosis Cervical Spondylosis w/o Myelopathy or Radiculop. Post-op Diagnosis Same Procedure Performed Diagnostic Bilateral Cervical Medial Branch Blocks at C2-3, C3, C4 Blocking the Bilateral C2-3, C3-4 Facet Joints Under Fluoroscopic Guidance and with Contrast Control (4 levels blocked). Surgeon Remberto Lira MD Promotions Assistant None. Anesthesia Local Description of Procedure INFORMED CONSENT: Risks, benefits and alternatives to the procedure were discussed in detail with the patient who expressed explicit understanding and consent to proceed. Patient was informed verbally and in written form regarding the risks associated with the procedure including the low risk of serious infection, bleeding/bruising, allergic reaction, nerve or organ injury, paralysis, procedural site pain or discomfort, worsening pain and/or mobility, failure to treat and/or disfigurement. The patient expressed explicit understanding and consent to proceed. All materials required for the procedure were available prior to procedure start. Site and side was marked prior to procedure and confirmed in the presence of the patient. PROCEDURE IN DETAIL: The patient was brought to the procedural suite and placed in the left lateral decubitus position with head stabilized. Patient was made comfortable with use of pillows under the head and between the knees and ankles. Skin overlying the injection site on the affected side was prepared broadly with tinted 3ml ChloraPrep applicator and draped in a sterile manner. Aseptic technique was used throughout. The endplates of the vertebral bodies at the site(s) of interest were aligned in the lateral fluoroscopic view relative to the patient. Image was optimized for visualization of the pars interarticularis at each target site. Local anesthesia was established by infiltration with approximately 5 mL of 1% lidocaine via a 1-1/2 inch 27- gauge needle. A 25-gauge 3.5 inch Quincke spinal needle was advanced until the needle tip contacted the periosteum of the pars interarticularis at the target site, the right C2-3 medial branch. AP view was utilized to confirm the appropriate placement of the needle tip just lateral to the periosteum at the center point of the pars interarticularis. In the lateral view, 0.25 mL of Omnipaque 300 contrast medium was injected after negative aspiration for CSF, blood or other bodily fluid, showing appropriate extra-articular spread of contrast without evidence of intravascular, foraminal or intrathecal placement. A 0.25 mL solution of 2.0% PF lidocaine was injected after negative repeat aspiration. Appropriate spread of the injectate was confirmed with washout of previously injected contrast. No parasthesias were elicited. Needle was removed completely intact without difficulty. The same procedure was repeated for all additional intended levels/structures treated on the ipsilateral side, the right C3, C4 medial branches with identical methodology modified to compensate for different location, with similar results and no evidence of complication. The same procedure was then repeated for all additional intended levels/structures treated on the contralateral side, the left C2-3, C3, C4 medial branches, with identical methodology and positioning modified to compensate for the contralateral location, with similar results and no evidence of complication. Images were saved and documented in the patient chart. Patient's skin was cleaned and sterile bandage applied. The patient tolerated the procedure well. The patient was transported to the recovery area in stable condition where they were observed for an appropriate amount of time prior to discharge, without evidence of complication. Patient was instructed on the appropriate completion of a pain diary over the next 12-24 hours. The patient was instructed to avoid excessive activity for the next 48 hours, including climbing and frequent use of stairs. Showers only for 48 hours. They were instructed not to drive or operate heavy machinery for 24 hours. They are to monitor for severe headaches, fevers, chills, night sweats, erythema/swelling at the site or any other signs of infection, bleeding/bruising, bowel or bladder changes as well as new pain, weakness or numbness in the upper or lower extremity. Should they notice these changes, they are instructed to call our office immediately or report directly to the nearest Emergency Department if no answer or if after posted office hours. COMPLICATIONS: None. COMMENTS: None. CONTRAST WASTED: 29.25mL Omnipaque 300. Complications No immediate complications Condition Stable Disposition Same day [facility] Billing Surgery - Charge Forward: Surgery Billing
[2025-09-23 12:36] VITALS: BP 129/72; PULSE 71; RESP 15; O2SAT 98
[2025-09-23] MEDS: LIDOCAINE 2% PF LOCAL INJ 5 ML VIAL (12:40)
[2025-09-23 12:56] VITALS: BP 166/75; PULSE 62; RESP 16; O2SAT 98
== END 2025-09-23 13:33 | disposition home or self-care (01) ==
PROVIDERS: PCP Family Medicine; Visit Provider Anesthesiology Pain Medicine
PROC: (CPT 64490; principal; 2025-09-23 11:10)
DX: M47.812 Spondylosis without myelopathy or radiculopathy, cervical region (principal)
CPT/HCPCS: 64490 ×2; 64491 ×2; 64492 ×2; 99199

== ENCOUNTER 2025-09-30 07:28 | Day surgery (SDC) | payer MEDICARE, SELFPAY ==
[2025-09-26 13:27] VITALS: BMI 34.0
--- NOTE | ~2025-09-30 | XR_ITS ---
XR fluoroscopy no charge Indication: Thermal radiofrequency ablation bilateral C2-3, C3-4 TECHNIQUE: Fluoroscopy used during Thermal radiofrequency ablation bilateral C2-3, C3-4 performed by [Remberto Lira MD] on 09/30/2025. 278 seconds of fluoroscopy with 277 fluoroscopic images captured. FINDINGS: Correlate with procedure note. IMPRESSION: Fluoroscopy used during Thermal radiofrequency ablation bilateral C2-3, C3-4. Reviewed, dictated and finalized at location O. NUE AGENT IMPRESSION: Fluoroscopy used during Thermal radiofrequency ablation bilateral C 2-3, C3-4.
--- NOTE | 2025-09-30 06:23 | WPDHPUPDATE1 ---
History and Physical Update Update Date/Time: 09/30/25 06:23 History and Physical has been reviewed, including an updated exam of the patient. There are NO changes in the patient's condition. Risks, benefits, and alternatives have been discussed and questions answered. Patient agrees to proceed with procedure.
--- NOTE | 2025-09-30 06:24 | W.PM.PROC2 ---
Procedure Note - Detailed Date of Procedure 09/30/25 Pre-op Diagnosis Cervical Spondylosis, cervicalgia Post-op Diagnosis Same Procedure Performed Thermal Radiofrequency Ablation of the Bilateral Cervical Medial Branches at C2-3, C3, C4 to ablate the Bilateral C2-3, C3-4 facet joints under Fluoroscopic Guidance (4 levels treated). Surgeon Remberto Lira MD Gaming Table Operator None. Anesthesia Local (w/ IV Moderate Sedation) Description of Procedure INFORMED CONSENT: Risks, benefits and alternatives to the procedure were discussed in detail with the patient who expressed explicit understanding and consent to proceed. Patient was informed verbally and in written form regarding the risks associated with the procedure including the low risk of serious infection, bleeding/bruising, allergic reaction, nerve or organ injury, paralysis, procedural site pain or discomfort, worsening pain and/or mobility, failure to treat and/or disfigurement. The patient expressed explicit understanding and consent to proceed. All materials required for the procedure were available prior to procedure start. Site and side was marked prior to procedure and confirmed in the presence of the patient. PROCEDURE IN DETAIL: The patient was brought to the procedural suite and placed in the prone position with head stabilized with a horseshoe pillow and cervical ramp. Patient was made comfortable with use of pillows under the head/chest, hips and ankles. Skin overlying the injection site on the affected side(s) was prepared broadly with 10mL tinted ChloraPrep applicator and draped in a sterile manner. Strict aseptic technique was utilized throughout. The endplates of the vertebral bodies at the site(s) of interest were aligned in the AP view. Ipsilateral oblique angulation was utilized to optimize visualization of the pars interarticularis at each target site. Local anesthesia was established by infiltration with approximately 5 mL of 1% lidocaine via a 1-1/2 inch 27-gauge needle. An 18-gauge 100mm RF needle with curved 10mm active tip was advanced in the AP view until the needle tip contacted the periosteum of the pars interarticularis at the target site, right C2-3 parallel to the course of the targeted peripheral nerve branch. Lateral view was utilized to adjust and confirm the appropriate placement of the needle tip just anterior to the center point of the interarticularis, bisecting the distance between adjacent joint spaces. The appropriately-sized RF cannula was inserted into the RF needle and motor stimulation performed with no subjective or objective evidence of recruited muscle activity with stimulation up to 2.0 volts at a frequency of 2Hz. A 1.5 mL solution of 2.0% PF lidocaine was injected via the appropriately positioned RF cannula after negative aspiration. The grounding electrode was confirmed to be in place with good contact and functioning appropriately. After a 90s pause, lesioning was performed to 90 degrees centigrade for 90s ensuring lack of symptoms in the extremity throughout. Needle was withdrawn approximately 1-2 mm and rotated 180 degrees at each level. Lesioning was then repeated in a similar manner as above. The patient tolerated this well. No parasthesias were elicited. Needle was removed completely intact without difficulty. The same procedure was then repeated for all intended levels/ structures on the ipsilateral side, right C3, C4, with identical methodology, modified to compensate for new location, with similar results and no evidence of complication. The same procedure was then repeated for all intended levels/ structures on the contralateral side, left C2-3, C3, C4, with identical methodology, modified to compensate for new contralateral location/approach, with similar results and no evidence of complication. Images were saved and documented in the patient's chart. The patient's skin was cleaned and sterile bandages applied. The patient tolerated the procedure well. The patient was transported to the recovery area in stable condition where they were observed for an appropriate amount of time prior to discharge, without evidence of complication. The patient was instructed to avoid excessive activity for the next 48 hours, including overhead work, reaching and device/computer usage. Showers only for 48 hours. They were instructed not to drive or operate heavy machinery for 24 hours. They are to monitor for severe headaches, fevers, chills, night sweats, erythema/swelling at the site or any other signs of infection, bleeding/bruising, bowel or bladder changes as well as new pain, weakness or numbness in the upper or lower extremity. Should they notice these changes, they are instructed to call our office immediately or report directly to the nearest Emergency Department if no answer or if after posted office hours. Complications None Condition Stable Disposition PACU [facility] Billing Surgery - Charge Forward: Surgery Billing
--- OUTSIDE RECORDS SUMMARY | 2025-09-30 07:30 | XMS_ITS | Clinical Summary ---
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 Active [place]-3 Fatty Acids (FISH OIL PO)Indications: Left shoulder [...] this topic Medical Devices Implanted Type Area Volunteer Manager Device Identifier Shelf Expiration Date Model / Serial / Lot Screw Bone Shoulder Locking Reverse #[id number] - [id number] Implanted:Qty: 1 on 05/14/2014 by Kevon Clifford MD at [facility] SCREW Left: Humerus EXACTECH - P_EXACTECH 05/05/2019 [id number] / [id number] / Screw Bn 38mm 4.5mm Equnx Cmprsn Rev #[id number] - [id number] Implanted:Qty: 1 on 05/14/2014 by Kevon Clifford MD at [facility] SCREW Left: Humerus EXACTECH - P_EXACTECH 04/04/2019 [id number] / [id number] / Screw Bn 30mm 4.5mm Shuldr Cmprsn Rev #[id number] - [id number] Implanted:Qty: 1 on 05/14/2014 by Kevon Clifford MD at [facility] SCREW Left: Humerus EXACTECH - P_EXACTECH 03/05/2019 [id number] / [id number] / Screw Bn 38mm 4.5mm Equnx Cmprsn Rev #[id number] - [id number] Implanted:Qty: 1 on 05/14/2014 by Kevon Clifford MD at [facility] SCREW Left: Humerus EXACTECH - P_EXACTECH 04/04/2019 [id number] / [id number] / Screw Bn 26mm 4.5mm Shuldr Cmprsn Rev #[id number] - [id number] Implanted:Qty: 1 on 05/14/2014 by Kevon Clifford MD at [facility] SCREW Left: Humerus EXACTECH - P_EXACTECH 05/05/2019 [id number] / [id number] / Screw Bn Shoulder Torque Defining Rev #[id number] - [id number] Implanted:Qty: 1 on 05/14/2014 by Kevon Clifford MD at [facility] SCREW Left: Humerus EXACTECH - P_EXACTECH 04/04/2019 [id number] / [id number] / Liner Humeral 42mm Plus0 #[id number] - [id number] Implanted:Qty: 1 on 05/14/2014 by Kevon Clifford MD at [facility] SHOULDER COMPONENT Left: Humerus EXACTECH - P_EXACTECH 04/04/2019 [id number] / [id number] / Glenoidsphere 42mm #[id number] - [id number] Implanted:Qty: 1 on 05/14/2014 by Kevon Clifford MD at [facility] SHOULDER COMPONENT Left: Humerus EXACTECH - P_EXACTECH 05/05/2024 [id number] / [id number] / Stem Humeral 11mm Shoulder #[id number] - [id number] Implanted:Qty: 1 on 05/14/2014 by Kevon Clifford MD at [facility] SHOULDER COMPONENT Left: Humerus EXACTECH - P_EXACTECH 04/04/2024 [id number] / [id number] / Tray Sterilization +0 Reverse Humeral #[id number] - [id number] Implanted:Qty: 1 on 05/14/2014 by Kevon Clifford MD at [facility] SHOULDER COMPONENT Left: Humerus EXACTECH - P_EXACTECH 05/05/2024 [id number] / [id number] / [id number] - [id number] Implanted:Qty: 1 on 05/14/2014 by Kevon Clifford MD at [facility] Left: Humerus 08/05/2021 / [id number] / Description:POSTERIOR AUGMEN T GLENOID PLATE LEFT 8 DEG Care Teams Senior Climate Advisor Relationship Specialty Start Date End Date [facility] PCP - General 12/09/14
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
[2025-09-30 07:42] VITALS: BP 137/84; PULSE 66; RESP 16; TEMP 37; O2SAT 96
--- NOTE | 2025-09-30 08:07 | WPDANESEPPF ---
Anes - Initial Pre Proc Eval Procedure: Operation Date: 09/30/25 09:00 Proposed Procedures p Thermal Radiofrequency Ablation Bilateral C2-3, C3, C4 Medial Branch/Dorsal Rami Supplying Bilateral C2-3, C3-4 Facet Joints under Fluoroscopic Guidance with Contrast Contrast Control - Remberto Lira MD Date/Time: 09/30/25 08:07 Surgeon: Remberto Lira MD Pre Op Diagnosis: Cervical Spinal Stenosis Patient Data Age: 75 Gender: F Height: 1.63 m Weight: 88.6 kg Last Vital Signs Temp 98.6 F 09/30/25 07:42 Pulse 66 09/30/25 07:42 Resp 16 09/30/25 07:42 BP 137/84 09/30/25 07:42 Pulse Ox 96 09/30/25 07:42 O2 Del Method Room Air 09/30/25 07:42 Allergies Allergy/AdvReac Type Severity Reaction Status Date / Time No Known Allergies Allergy Unknown Verified 09/30/25 07:40 Home Medications ?Medication ?Instructions ?Recorded ?Confirmed ?Type acetaminophen 500 mg tablet 500 mg PO Q6H PRN pain 08/12/25 09/30/25 History (Tylenol Extra Strength) alprazolam 0.5 mg tablet 0.5 mg PO DAILY PRN anxiety 08/12/25 09/30/25 History celecoxib 200 mg capsule 200 mg PO DAILY 08/12/25 09/30/25 History cyclosporine 0.05 % eye drops in a 1 drp EACH EYE ONCE 08/12/25 09/30/25 History dropperette (Restasis) dutasteride 0.5 mg capsule 0.5 mg PO DAILY 08/12/25 09/30/25 History escitalopram oxalate 10 mg tablet 10 mg PO DAILY 08/12/25 09/30/25 History levothyroxine 112 mcg tablet 112 mcg PO DAILY 08/12/25 09/30/25 History (Synthroid) venlafaxine 75 mg capsule,extended 75 mg PO DAILY 08/12/25 09/30/25 History release 24 hr Patient hx anesthesia problems: post op nausea/vomiting Family hx anesthesia problems: none Results Review: All pre-operative results and documents have been reviewed as part of the pre-operative evaluation. [facility] Past Medical History Medical History Myofascial pain Myofascial neck pain Cervical spondylosis Cervical spinal stenosis Cervicalgia Wrist fracture Thyroid disorder IBS (irritable bowel syndrome) Arthritis Anxiety Surgical History Surgical History History of left shoulder replacement History of right hip replacement Social History Social History Smoking status: Never smoker Tobacco type: cigarettes Second hand tobacco smoke exposure: Yes Additional smoking assessment comments: Quit 1978 Alcohol intake: current Drinks per week: 14 Alcohol use details: wine Substance use: never Substance use type: does not use Living arrangements: alone Spiritual care concerns: No Anes - Eval Final PreProcedure Day of Procedure 09/30/25 08:07 Heart: regular rate and rhythm Lungs: clear to auscultation Airway: Mallampati scale class II Neurological: alert and oriented Last oral intake: >/= 8 hours ASA classification: II Anesthetic plan: proceed Anesthesia type and monitoring: monitored anesthesia care Results Review: All pre-operative results and documents have been reviewed as part of the pre-operative evaluation. Informed Consent: The patient's anesthetic plan and its attendant risks and benefits were discussed with the patient/family/POA. Questions were solicited and answers provided to the satisfaction of the patient/family/POA.
[2025-09-30] MEDS: BUPivacaine HCL 0.5% 10 ML AMP (08:28)
[2025-09-30] MEDS: LIDOCAINE 1% PF INJ 5 ML VIAL (08:29)
[2025-09-30] MEDS: LIDOCAINE 2% PF LOCAL INJ 5 ML VIAL (08:29)
[2025-09-30] MEDS: LACTATED RINGERS 1,000 ML 30 ML IV CONT (08:46)
[2025-09-30 08:51] VITALS: BP 142/75; PULSE 62; RESP 16; O2SAT 100
[2025-09-30 09:01] VITALS: BP 161/77; PULSE 59; RESP 16; O2SAT 100
[2025-09-30 09:11] VITALS: BP 162/71; PULSE 61; RESP 17; O2SAT 99
== END 2025-09-30 09:39 | disposition home or self-care (01) ==
LOC: ASC 07:29
PROVIDERS: PCP Family Medicine; Visit Provider Anesthesiology Pain Medicine
PROC: (CPT 64633; principal; 2025-09-30 09:00)
DX: M47.812 Spondylosis without myelopathy or radiculopathy, cervical region (principal)
CPT/HCPCS: 64633 ×2; 64634 ×6; 99199